=== PATIENT | female | born 1970 ===

== ENCOUNTER 2018-07-22 11:24 | Emergency (ER) | payer SELFPAY ==
[2018-07-22 11:28] VITALS: BMI 20.8
[2018-07-22 11:33] VITALS: RESP 18
[2018-07-22] MEDS ORDERED: Naproxen 550 mg Tab PO STA (11:53)
[2018-07-22] MEDS ORDERED: Naproxen 550 mg Tab PO ONE (12:09)
--- NOTE | 2018-07-22 12:59 | C.PDOC ---
History Of Present Illness 48 y/o female presents to the ED for evaluation of right shoulder, right-sided neck, right hip, right elbow and left knee pain which began after she sustained a fall 2 days ago. Patient states she was standing on a stool when her clothes got caught onto something, causing her to fall down on her right side. She is also complaining of some lightheadedness. Otherwise, she denies LOC, dizziness, chest pain, palpations and abdominal pain at this time. - HPI Time Seen by Provider: 07/22/18 11:33 Chief Complaint (Nursing): Trauma History Per: Patient History/Exam Limitations: no limitations Onset/Duration Of Symptoms: Days (2) Location Of Injury: Right: Elbow, Hip, Neck, Shoulder, Left: Knee Additional History Per: Patient Past Medical History Reviewed: Historical Data, Nursing Documentation, Vital Signs Vital Signs: Last Vital Signs Temp 97.8 F 07/22/18 11:28 Pulse 69 07/22/18 11:28 Resp 18 07/22/18 11:28 BP 110/71 07/22/18 11:28 Pulse Ox 100 07/22/18 11:28 - Medical History PMH: Hypothyroidism Surgical History: No Surg Hx Family History: States: Unknown Family Hx - Social History Hx Alcohol Use: No Hx Substance Use: No - Immunization History Hx Tetanus Toxoid Vaccination: No Hx Influenza Vaccination: Yes Hx Pneumococcal Vaccination: No Review Of Systems Gastrointestinal: Negative for: Abdominal Pain Musculoskeletal: Positive for: Neck Pain (right), Shoulder Pain (right), Leg Pain (left knee ), Other (right elbow, right hip ) Neurological: Positive for: Other (positive lightheadedness, negative LOC ) Physical Exam - Physical Exam Appears: Non-toxic, No Acute Distress, Other (in mild pain ) Skin: Normal Color, Warm, Dry Head: Atraumatic, Normacephalic Eye(s): bilateral: Normal Inspection Oral Mucosa: Moist Neck: Supple, Other (tendernes around right paraspinal region, along trapezius ) Chest: Symmetrical, No Deformity, No Tenderness Cardiovascular: Rhythm Regular, No Murmur Respiratory: Normal Breath Sounds, No Rales, No Rhonchi, No Wheezing Gastrointestinal/Abdominal: Soft, No Tenderness, No Guarding, No Rebound Extremity: Tenderness (along right posterior shoulder, mild to right elbow, right hip and left knee ), Capillary Refill (less than 2 seconds ), No Deformity, Swelling (mild to left knee ), Other (contusion to left knee ) Neurological/Psych: Oriented x3, Normal Speech, Normal Cognition, Normal Motor, Normal Sensation Gait: Steady ED Course And Treatment O2 Sat by Pulse Oximetry: 100 (on RA) Pulse Ox Interpretation: Normal Progress Note: Cervical Spine AP/LAT XR, Right shoulder, Right elbow, left knee and right hip XR ordered and reviewed. Naproxen PO and Flexeril PO given. On reassessment, patient is resting comfortably, showing no signs of distress and is stable for discharge. Patient is advised to follow up with her PMD within 1-2 days for further evaluation. Disposition Counseled Patient/Family Regarding: Studies Performed, Diagnosis, Need For Followup, Rx Given - Disposition Referrals: [facility] [Outside] Disposition: HOME/ ROUTINE Disposition Time: 12:55 Condition: STABLE Additional Instructions: FOLLOW UP WITH YOUR DOCTOR/CLINIC IN 1-2 DAYS USE MEDICATIONS NEEDED RETURN TO EMERGENCY ROOM IF SYMPTOMS WORSEN SEGUIR CON YOO MDICO / CLNICA EN 1-2 ZELAYA UTILICE MEDICAMENTOS SAMSON SE NECESITE VUELVA A LA NEIL DE EMERGENCIA SI LOS SNTOMAS SE MAR PROBLEMAS Prescriptions: Cyclobenzaprine [Flexeril] 10 mg PO BID PRN #15 tab PRN Reason: Muscle Spasm Naproxen 375 mg PO BID PRN #20 tablet PRN Reason: pain Instructions: Muscle Strain (DC), Contusion (DC) Forms: [facility] (Syrian) Print Language: IRISH - POA Present On Arrival: Falls Or Trauma - Clinical Impression Clinical Impression: Sprain of right shoulder, Acute cervical sprain, Sprain of right elbow, Sprain of right hip, Left knee sprain - Scribe Statement The provider has reviewed the documentation as recorded by the Scribe (Latasha Marks) Provider Attestation: All medical record entries made by the Scribe were at my direction and person ally dictated by me. I have reviewed the chart and agree that the record accurately reflects my personal performance of the history, physical exam, medical decision making, and the department course for this patient. I have also personally directed, reviewed, and agree with the discharge instructions and disposition.
[2018-07-22 13:10] VITALS: BP 116/66; PULSE 55; TEMP 98.1
[2018-07-22 13:31] VITALS: O2SAT 100
--- NOTE | 2018-07-22 15:50 | RAD ---
PROCEDURE: Right Hip Radiographs. HISTORY: RIGHT HIP PAIN AFTER FALL COMPARISON: None. FINDINGS: BONES: Bone alignment and mineralization are normal. There is no acute displaced fracture or bone destruction. A focal area of sclerosis in the left iliac wing is statistically most compatible with a bone island. JOINTS: Normal. SOFT TISSUES: Normal. OTHER FINDINGS: None. IMPRESSION: No acute displaced fracture or dislocation.
--- NOTE | 2018-07-22 15:52 | RAD ---
Date of service: 07/22/2018 PROCEDURE: Left Knee Radiographs. HISTORY: Pain. COMPARISON: None. FINDINGS: BONES: Bone alignment and mineralization are normal. There is no acute displaced fracture or bone destruction. JOINTS: Normal. No osteoarthritis. JOINT EFFUSION: None. OTHER FINDINGS: None. IMPRESSION: Normal examination.
--- NOTE | 2018-07-22 15:52 | RAD ---
Date of service: 07/22/2018 PROCEDURE: Radiographs of the Right Shoulder HISTORY: RIGHT SHOULDER PAIN AFTER FALL COMPARISON: No prior. FINDINGS: BONES: Bone alignment and mineralization are normal. There is no acute displaced fracture or bone destruction. JOINTS: Normal. Glenohumeral and acromioclavicular joints preserved. No osteoarthritis. SOFT TISSUES: Normal. OTHER FINDINGS: None. IMPRESSION: No acute fracture or dislocation.
--- NOTE | 2018-07-22 15:55 | RAD ---
Date of service: 07/22/2018 PROCEDURE: Cervical Spine Radiographs. HISTORY: Pain. COMPARISON: None available. FINDINGS: BONES: There is normal alignment of the cervical vertebral bodies. There is normal cervical lordosis. Vertebral height is normal. Bone mineralization is normal. There is no acute fracture or traumatic anterior listhesis. The craniocervical junction is normal. The atlantoaxial joint normal. DISC SPACES: Normal. SOFT TISSUES: Normal. No prevertebral soft tissue swelling. OTHER FINDINGS: None. IMPRESSION: No acute fracture or traumatic anterior listhesis.
--- NOTE | 2018-07-24 10:48 | RAD ---
Date of service: 07/22/2018 PROCEDURE: Radiographs of the right elbow. HISTORY: RIGHT ELBOW PAIN AFTER FALL COMPARISON: No prior. FINDINGS: BONES: No acute fracture or destructive bony lesion identified. JOINTS: Normal. No osteoarthritis. SOFT TISSUES: Normal. JOINT EFFUSION: None. OTHER FINDINGS: None. IMPRESSION: Unremarkable radiographs of the right elbow.
== END 2018-07-22 13:17 | disposition home or self-care (01) ==
LOC: C.ER 11:24
DX: S43.401A Unspecified sprain of right shoulder joint, initial encounter (principal); S13.4XXA Sprain of ligaments of cervical spine, initial encounter; S53.401A Unspecified sprain of right elbow, initial encounter; S83.92XA Sprain of unspecified site of left knee, initial encounter; S73.101A Unspecified sprain of right hip, initial encounter; W17.89XA Other fall from one level to another, initial encounter; E03.9 Hypothyroidism, unspecified